=== PATIENT | female | born 1950 | race Caucasian/White ===

== ENCOUNTER → 2017-03-02 | Outpatient (CLI) | payer OTHER ==
[~2017-03-02] MED LIST: ALPHAGAN P5 M1 OU; ASPIRIN ADULT L81 M5 PO; CYCLOBENZAPRINE5 MG PO; LEVOTHYROXINE0.1 M2 PO; METOPROLOL TART50 MG PO; NOR5 PO; PRILOSEC40 MG PO; SERTRALINE HYDR25 MG PO; XAN5 PO
== END | disposition home or self-care (01) ==
LOC: MA 09:16
PROC: BH02ZZZ Plain Radiography of Bilateral Breasts (ICD-10-PCS; principal; 2017-03-02)
DX: Z12.31 Encounter for screening mammogram for malignant neoplasm of breast (principal)
CPT/HCPCS: G0202

== ENCOUNTER 2017-09-25 10:25 | Inpatient (IN) | payer OTHER ==
[~2017-09-25] VITALS: Ht 149.9 cm; Wt 54.1 kg
[2017-09-25 12:14] LABS: BASOPHIL % 0.2 % (0-2); UA SPECIFIC GRAVITY <=1.005 (1.005-1.035); microscopic required? YES; urine erythrocyte TRACE (NEGATIVE)
[2017-09-25 12:29] LABS: CALCIUM 8.6 mg/dL (8.5-10.1); CARBON DIOXIDE 26.9 mmol/L (21-32); CHLORIDE SERUM 103 mmol/L (98-107); CREATININE SERUM 0.8 mg/dL (0.6-1.0); GFR1 > 60 mL/min; GLUCOSE SERUM 130 mg/dL (74-106); POTASSIUM SERUM 3.9 mmol/L (3.5-5.1); SODIUM SERUM 138 mmol/L (136-145)
[2017-09-25 12:33] LABS: ALBUMIN 3.8 g/dL (3.4-5.0); ALKALINE PHOSPHATASE 106 U/L (46-116); ALT/SGPT 33 U/L (14-59); AMYLASE 37 U/L (25-115); AST/SGOT 24 U/L (15-37); BILIRUBIN TOTAL 0.47 mg/dL (0.20-1.00); LIPASE 134 IU/L (73-393); TOTAL PROTEIN, SERUM 7.2 g/dL (6.4-8.2)
[2017-09-25 12:51] LABS: RED CELL DISTRIBUTION WIDTH 14.6 % (11.5-14.5)
[2017-09-25 12:52] LABS: PLATELET COUNT 203 x10^3mcL (130-400)
[2017-09-25 15:00] LABS: AMPHETAMINE QUAL UR NONE DETECTED (NEG <=1000)
[2017-09-25 15:04] LABS: T3 TOTAL 0.84 ng/mL
[2017-09-25] MEDS ORDERED: ALPHAGAN P5 M1 OU (15:04)
[2017-09-25 15:12] LABS: FREE T4 1.13 ng/dL (0.76-1.46); FREE THYROXINE INDEX 3.2 ug/dL (1.4-4.5)
[2017-09-25 15:21] LABS: CHOLESTEROL/HDL RATIO 4.1; MAGNESIUM 2.3 mg/dL (1.8-2.4); PHOSPHOROUS 3.2 mg/dL (2.5-4.9)
[2017-09-25 16:27] VITALS: BP 155/90
[2017-09-25 21:29] VITALS: BP 128/65
[2017-09-26 05:53] VITALS: BP 118/64
[2017-09-26 06:52] LABS: CALCIUM 8.3 mg/dL (8.5-10.1); CARBON DIOXIDE 26.5 mmol/L (21-32); CHLORIDE SERUM 107 mmol/L (98-107); CREATININE SERUM 0.6 mg/dL (0.6-1.0); GFR1 > 60 mL/min; GLUCOSE SERUM 91 mg/dL (74-106); POTASSIUM SERUM 4.2 mmol/L (3.5-5.1); SODIUM SERUM 141 mmol/L (136-145)
[2017-09-26 07:14] LABS: BASOPHIL % 0.4 % (0-2); PLATELET COUNT 195 x10^3mcL (130-400)
[2017-09-26 07:19] LABS: RED CELL DISTRIBUTION WIDTH 14.7 % (11.5-14.5)
[2017-09-26 10:23] VITALS: BP 122/64
[2017-09-26 18:28] VITALS: BP 134/66
[2017-09-26 21:22] VITALS: BP 160/66
[2017-09-27 05:59] VITALS: BP 151/61
[2017-09-27] MEDS ORDERED: FLO4 PO (09:49)
[2017-09-27] MEDS ORDERED: KEF500 PO (09:51)
[2017-09-27 10:00] VITALS: BP 114/61
[2017-09-27 10:21] VITALS: BP 151/61
[2017-09-27] MEDS ORDERED: PRI20 PO (10:42)
[2017-09-27] MEDS ORDERED: ZOLOFT25 MG PO (11:00)
[2017-09-27] MEDS ORDERED: LEVAQUIN750 MG PO (11:23)
== END 2017-09-27 12:03 | disposition home or self-care (01) | DRG 690 ==
LOC: ED 10:25 → MU 14:00 → DU 14:00 → MU 09-26 08:53
PROVIDERS: Emergency Medicine; ADMIT Family Medicine
DX: N12 Tubulo-interstitial nephritis, not specified as acute or chronic (principal); D68.69 Other thrombophilia; N20.0 Calculus of kidney; R73.03 Prediabetes; I10 Essential (primary) hypertension; K21.9 Gastro-esophageal reflux disease without esophagitis; E03.9 Hypothyroidism, unspecified; E78.1 Pure hyperglyceridemia; H40.9 Unspecified glaucoma; I25.2 Old myocardial infarction; Z96.642 Presence of left artificial hip joint; Z68.24 Body mass index [BMI] 24.0-24.9, adult
CPT/HCPCS: 82962; 83880; 84439; J0696; J1885; J7030; Q0092